=== PATIENT | female | born 1970 | race Caucasian/White ===

== ENCOUNTER 2021-10-21 15:48 | Emergency (ER) | payer BC, SELFPAY ==
[2021-10-21 15:48] VITALS: BP 154/100; PULSE 84; RESP 18; TEMP 35.8; O2SAT 100; BMI 37.3
--- NOTE | 2021-10-21 15:50 | EKG12_ITS ---
Test Reason : CP Blood Pressure : / mmHG Vent. Rate : 078 BPM Atrial Rate : 078 BPM P-R Int : 176 ms QRS Dur : 094 ms QT Int : 380 ms P-R-T Axes : 049 -17 010 degrees QTc Int : 433 ms Normal sinus rhythm Low voltage QRS (Precordial Leads) Confirmed by JOSE ALBERTO GONG, ARIELA ([id number]), proposal editor ANDRE SHAW ([id number]) on 10/23/2021 12:17:20 PM Referred By: YASMIN Confirmed By:ARIELA ABRAMS MD
--- NOTE | 2021-10-21 16:07 | NURSING ---
NO OLD EKGS
[2021-10-21 16:12] LABS: Absolute Lymphocyte Count 2.76 X10^3/uL (0.83-4.51); Absolute Neutrophil Count 4.9 X10^3/uL (2.0-7.7); Basophil# 0.09 X10^3/uL; Eosinophil# 0.27 X10^3/uL; Eosinophils% 3.1 % (0-5); Hemoglobin 12.1 g/dL (12.0-15.0); Lymphocyte # 2.76 X10^3/ul (0.83-4.51); Lymphocyte % 31.4 % (19-41); Mean Corp Hgb Conc 32.7 g/dL (32-36); Mean Corpuscular Hgb 28.2 pg (27.0-32.0); Mean Corpuscular Volume 86.2 fL (81-99); Mean Platelet Vol. 8.7 fl (6.2-12.0); Monocyte# 0.64 X10^3/uL; Monocyte% 7.3 % (0-10); NRBC Flagged by Analyzer 0.6 % (0-5); Neutrophil # 4.91 X10^3/uL (2.7-7.7); Neutrophil % 55.8 % (47-70); Platelet Count 298 K/mm3 (150-450); RBC Distribution Width CV 14.3 % (11.6-14.6); RBC Distribution Width SD 44.3 fl (35.1-43.9); Red Blood Count 4.29 M/mm3 (4.2-5.4); White Blood Count 8.8 K/mm3 (4.4-11.0)
--- NOTE | 2021-10-21 16:40 | RAD_ITS ---
INDICATION: chest pain EXAMINATION/TECHNIQUE: X-RAY - XR Chest 1 View COMPARISON: None. FINDINGS: LIFE-SUPPORT AND LINES: 1. None HEART AND VESSELS: The cardiac silhouette, pulmonary vasculature have normal appearance. No evidence of congestive failure. LUNGS AND PLEURAL SPACES: Subtle asymmetric interstitial infiltrate versus atelectasis at the RIGHT lung base without consolidation or effusion. Remaining lung zones are clear. No pulmonary mass is noted. MEDIASTINUM AND HILAR REGIONS: No masses adenopathy noted. No areas of calcification. Visualized upper airway is normal in position. BONY ELEMENTS: No acute bony changes noted. RAD/Chest 1 View (Portable) IMPRESSION: 1. Subtle asymmetric interstitial infiltrate versus atelectasis at the RIGHT lung base. No evidence of congestive failure, consolidation or effusion. Electronically Signed: Sundeep Fritz MD at 16:52 EST Tel , Service support ,
[2021-10-21 16:41] LABS: Anion Gap 7 (5-15); BUN 16 mg/dL (7-18); BUN/Creat Ratio 22.3 RATIO (10-20); Calcium,Total 9.1 mg/dL (8.5-10.1); Chloride 107 mmol/L (98-107); Creatinine, Serum 0.72 mg/dL (0.55-1.02); EST Glomerular Filtration Rate 92 mL/min (>60); Est Glom Filt Rate - Afr Amer 111 mL/min (>60); Estimated Creatinine Clearance 102.21 ml/min; Glucose 103 mg/dL (74-106); Potassium 3.8 mmol/L (3.5-5.1); Sodium Level 141 mmol/L (136-145); Troponin-I HS < 3 pg/mL (3.0-54.0)
[2021-10-21 19:08] VITALS: BP 146/83; PULSE 75; RESP 12; O2SAT 97
--- NOTE | 2021-10-21 19:23 | EDS_ITS ---
HPI History of Present Illness Chief Complaint: Chest Pain Informant: patient Onset/Context/Timing Onset: Today Activity at onset: gradual Timing: Waxes and wanes Quality: Positive for Pressure Location: Substernal Current Severity: Mild Maximum Severity: Moderate Narrative Narrative: Patient presents secondary to chest pain that started while she was at work today. Around 230 this afternoon she noted a pressure sensation in her chest that kept increasing. She had 3 separate ways of rather intense pain. She did have some pain that radiated up to her jaw. She had mild sweats but did not feel short of breath. She states her pain completely subsided this afternoon and is now only very mild. She denies cardiac history. No change in activity tolerance over the last couple weeks. [facility] Medical History Multiple sclerosis Home Medications Vitamin D (with calcium) 10/21/21 [History Last Taken Unknown] sertraline 75 mg PO DAILY 10/21/21 [History Last Taken Unknown] sertraline 75 mg PO DAILY 10/21/21 [History Last Taken Unknown] Allergy/AdvReac Type Severity Reaction Status Date / Time Penicillins Allergy Hives Verified 10/21/21 15:50 Social History Smoking Status: Current some day smoker tobacco type: cigarettes ROS ROS ED Constitutional Constitutional ED: Denies chills or fever(s) Eyes Eyes: Denies change in vision ENT ENT ED: Denies sore throat Cardiovascular Cardiovascular: Reports chest pain Respiratory/Chest Respiratory/Chest: Denies cough or dyspnea Gastrointestinal Gastrointestinal: Denies abdominal pain, diarrhea, nausea or vomiting Genitourinary Genitourinary ED: Denies dysuria Musculoskeletal Musculoskeletal: Denies back pain Integumentary Denies rash Neurologic Neurologic: Denies headache(s) Psychiatric Psychiatric: Denies anxiety or depression Allergic/Immunologic Allergic/Immunologic ED: Denies urticaria EXAM Physical Exam Const Vital Signs: 10/21/21 15:48 10/21/21 19:08 10/21/21 19:12 Temperature 96.5 F L Temperature Source Temporal Pulse Rate 84 75 Respiratory Rate 18 12 Respiratory Effort Normal Blood Pressure 154/100 H 146/83 H Blood Pressure Mean 118 104 Pulse Ox 100 97 Oxygen Delivery Method Room Air Room Air 10/21/21 20:08 Temperature Temperature Source Pulse Rate 77 Respiratory Rate 17 Respiratory Effort Blood Pressure 119/80 Blood Pressure Mean 93 Pulse Ox 96 Oxygen Delivery Method Room Air Positive well nourished and well developed General Appearance ED: well developed HEENT Reports normocephalic and head/scalp atraumatic Eyes PERRL and EOMs intact bilaterally Neck supple Chest Wall inspection of chest normal and palpation of chest normal Resp normal respiratory effort and clear to auscultation bilaterally Cardio regular rate and regular rhythm GI normal to inspection, nondistended, normoactive bowel sounds, soft to palpation and non-tender Palpation: soft Extremity normal to inspection Neuro oriented x3 Neuro Narrative: No focal neurologic deficits. Sensorium / Orientation: alert Psych mental status grossly normal Skin no rashes or lesions noted Heart Score History: Moderately Suspicious ECG: Normal Age: >45 - <65 years Risk Factors: No Risk Factors Troponin: </= Normal Limit Score: 2 MDM MDM MDM Narrative Medical decision making narrative: EKG, chest x-ray, lab work obtained. Lab Data Attestation: I reviewed the patient's lab results. Labs: Laboratory Results - last 24 hr 10/21/21 10/21/21 10/21/21 16:00 16:00 19:49 WBC 8.8 RBC 4.29 Hgb 12.1 Hct 37.0 MCV 86.2 MCH 28.2 MCHC 32.7 RDW Std Deviation 44.3 H RDW Coeff of Giana 14.3 Plt Count 298 MPV 8.7 Immature Gran % (Auto) 1.400 H Neut % (Auto) 55.8 Lymph % (Auto) 31.4 [place] % (Auto) 7.3 Eos % (Auto) 3.1 Baso % (Auto) 1.0 Absolute Neuts (auto) 4.9 Absolute Lymphs (auto) 2.76 Nucleated RBC % 0.6 Sodium 141 Potassium 3.8 Chloride 107 Carbon Dioxide 27.0 Anion Gap 7 BUN 16 Creatinine 0.72 Estim Creat Clear Calc 102.21 Est GFR (MDRD) Af Amer 111 Est GFR (MDRD) Non-Af 92 BUN/Creatinine Ratio 22.3 H Glucose 103 Calcium 9.1 Troponin I High Sens < 3 L < 3 L Radiography Chest X-Ray - ED: 1 View, Read by ED Physician and Chronic Changes Diagnostic Testing: Clinical Impression(s) from Imaging Studies Chest X-Ray 10/21/21 16:40 IMPRESSION: 1. Subtle asymmetric interstitial infiltrate versus atelectasis at the RIGHT lung base. No evidence of congestive failure, consolidation or effusion. Electronically Signed: Sundeep Fritz MD at 16:52 EST Tel , Service support , EKG Initial EKG: Attestation: I personally reviewed and interpreted this EKG as follows: Interpretation: Sinus Rhythm (Sinus at 78 with no acute ischemia.) Treatment and Re-Evaluation Comments:: Initial labs reviewed with the patient. Troponin is less than 3. Chest x-ray unremarkable. EKG reveals no ischemia. Delta troponin obtained and again returns at less than 3. Patient reassured with these findings and will follow with her primary care physician. Return instructions given. Discharge Plan Triage Chief Complaint: Chest Pain ED Provider: Ita Ji Dx/Rx/DC Orders Clinical Impression: Chest pain Instructions: ED Chest Pain, Uncertain Cause Prescriptions: No Action sertraline 100 mg tablet 75 mg PO DAILY RF: 0 sertraline 25 mg tablet 75 mg PO DAILY RF: 0 Vitamin D (with calcium) RF: 0 Primary Care Provider: Jessee Conley Referrals: Jessee Conley, [Primary Care Provider] - 3-5 Days if not improving Disposition Disposition: Home, Self Care
[2021-10-21 20:08] VITALS: BP 119/80; PULSE 77; RESP 17; O2SAT 96
[2021-10-21 20:20] LABS: Troponin-I HS < 3 pg/mL (3.0-54.0)
[2021-10-21 20:31] VITALS: BP 127/79; PULSE 81; RESP 6; O2SAT 96
== END 2021-10-21 20:37 | disposition home or self-care (01) ==
PROVIDERS: Emergency Provider Emergency Medicine; PCP Student in an Organized Health Care Education/Training Program
DX: R07.89 Other chest pain (principal); R61 Generalized hyperhidrosis; G35 Multiple sclerosis; Z79.899 Other long term (current) drug therapy; F17.210 Nicotine dependence, cigarettes, uncomplicated
CPT/HCPCS: 71045; 80048; 84484; 85025; 93005; 99284; A4216

== ENCOUNTER 2023-07-19 20:34 | Emergency (ER) | payer OTHER, SELFPAY ==
[2023-07-19 20:35] VITALS: BP 144/103; PULSE 82; RESP 16; RESP 18; TEMP 35.6; O2SAT 99; BMI 38.2
--- NOTE | 2023-07-19 20:51 | EKG12_ITS ---
Test Reason : DYSRHYTHMIA Blood Pressure : / mmHG Vent. Rate : 071 BPM Atrial Rate : 071 BPM P-R Int : 182 ms QRS Dur : 092 ms QT Int : 408 ms P-R-T Axes : 044 -18 -04 degrees QTc Int : 443 ms Normal sinus rhythm Minimal voltage criteria for LVH, may be normal variant ( R in aVL ) Cannot rule out Anterior infarct , age undetermined Abnormal ECG Confirmed by JODI GONG, TAVIA ([id number]), business editor SMILEY QUAN ([id number]) on 07/23/2023 11:35:08 AM Referred By: Confirmed By:TAVIA ZAPATA MD
--- NOTE | 2023-07-19 20:56 | EX.ED.DYSGE1 ---
HPI History of Present Illness Chief Complaint: Dizziness Informant: patient Onset/Context/Timing Onset: Today Narrative Narrative: Patient presents secondary to dizziness with nausea, vomiting, and frequent bowel movements. Patient states she was outside playing football with her son and her . She stubbed her left index finger. About 10 minutes later she started feeling lightheaded and dizzy along with some nausea. She felt as if she needed to have a bowel movement. She went into the house but had to hold onto the carroll. She had a bowel movement and lay down in bed and felt somewhat better. She states symptoms then recurred where she went back to the bathroom. She had another bowel movement and vomited and felt as if she was going to pass out. [facility] Medical History Multiple sclerosis Home Medications Vitamin D (with calcium) 10/21/21 [History Last Taken Unknown] sertraline 100 mg tablet 75 mg PO DAILY 10/21/21 [History Last Taken Unknown] sertraline 25 mg tablet 75 mg PO DAILY 10/21/21 [History Last Taken Unknown] Allergy/AdvReac Type Severity Reaction Status Date / Time Penicillins Allergy Hives Verified 10/21/21 15:50 Social History Smoking Status: Current some day smoker tobacco type: cigarettes ROS ROS ED Constitutional Constitutional ED: Denies chills or fever(s) Eyes Eyes: Denies change in vision ENT ENT ED: Denies rhinorrhea or sore throat Cardiovascular Cardiovascular: Denies chest pain or palpitations Respiratory/Chest Respiratory/Chest: Denies cough or dyspnea Gastrointestinal Gastrointestinal: Reports diarrhea, nausea and vomiting; Denies abdominal pain Genitourinary Genitourinary ED: Denies difficulty urinating or dysuria Musculoskeletal Musculoskeletal: Reports extremity pain; Denies back pain Integumentary Denies Abrasions or rash Neurologic Neurologic: Denies headache(s) or weakness Psychiatric Psychiatric: Denies anxiety or depression Allergic/Immunologic Allergic/Immunologic ED: Denies lip swelling or urticaria EXAM Physical Exam Const Vital Signs: 07/19/23 20:35 07/19/23 20:35 Temperature 96.0 F L 96.0 F L Temperature Source Temporal Temporal Pulse Rate 82 82 Respiratory Rate 18 16 Blood Pressure 144/103 H 144/103 H Blood Pressure Mean 116 116 Pulse Ox 99 99 Oxygen Delivery Method Room Air Room Air Positive well nourished and well developed General Appearance ED: well developed HEENT Reports moist mucous membranes Eyes EOMs intact bilaterally Neck no lymphadenopathy Chest Wall inspection of chest normal and palpation of chest normal Resp normal respiratory effort and clear to auscultation bilaterally Cardio regular rate and regular rhythm GI non-tender Auscultation: normoactive bowel sounds Palpation: soft Extremity Extremity Narrative: Minimal tenderness noted to the left index finger. Mild edema. Full range of motion with no difficulty. Good cap refill and sensation. Neuro oriented x3 and no sensory deficits noted Motor Exam: strength 5/5 throughout Skin no rashes or lesions noted MDM MDM MDM Narrative Medical decision making narrative: Patient's history sounds as if she had a vasovagal reaction, however was more prolonged than normal lasting about 45 minutes. In light of this with her history of MS patient will be placed on hospital monitor. EKG obtained to evaluate for cardiac arrhythmia/ischemia. Labwork obtained to evaluate for leukocytosis, anemia, and electrolyte derangement. Patient given IV fluids. History & Record Review Discussion w/independent historian: Patient and Significant other Lab Data Attestation: I reviewed the patient's lab results. Labs: Laboratory Results - last 24 hr 07/19/23 21:12 WBC 12.2 H RBC 4.62 Hgb 13.3 Hct 40.6 MCV 87.9 MCH 28.8 MCHC 32.8 RDW Std Deviation 43.5 RDW Coeff of Giana 13.4 Plt Count 378 MPV 8.9 Immature Gran % (Auto) 0.500 Neut % (Auto) 78.0 H Lymph % (Auto) 13.5 L [place] % (Auto) 5.6 Eos % (Auto) 1.7 Baso % (Auto) 0.7 Absolute Neuts (auto) 9.5 H Absolute Lymphs (auto) 1.65 Nucleated RBC % 0 Sodium 138 Potassium 3.6 Chloride 108 H Carbon Dioxide 25.0 Anion Gap 5 BUN 13 Creatinine 0.83 Estim Creat Clear Calc 87.69 Est GFR (MDRD) Af Amer 93 Est GFR (MDRD) Non-Af 77 BUN/Creatinine Ratio 15.6 Glucose 104 Calcium 8.6 EKG Initial EKG: Attestation: I personally reviewed and interpreted this EKG as follows: Interpretation: Sinus Rhythm (Sinus rhythm at 71 bpm. No acute ischemia.) Treatment and Re-Evaluation :: CBC was a white count 12.2 with 70% neutrophils. That this is likely a stress response from vomiting. Chemistry studies are unremarkable. Glucose is normal at 104. EKG is sinus with no acute ischemia. After IV fluids patient feels improved. I do not feel she needs imaging of her finger as she has full range of motion with very minimal tenderness. Her symptoms are consistent with vasovagal reaction, both from the injury as well as from the diarrhea that she had. Her episode was just more prolonged than typically expected. Return instructions were given. Patient and her are comfortable with the plan. Discharge Plan Triage Chief Complaint: Dizziness ED Provider: Ita Ji Dx/Rx/DC Orders Clinical Impression: Contusion of finger, Vaso-vagal reaction Instructions: ED Finger Contusion, ED Near-Fainting- Vagal Reaction Prescriptions: No Action sertraline 100 mg tablet 75 mg PO DAILY Patient Comments: take 1/2 tablet by mouth once daily sertraline 25 mg tablet 75 mg PO DAILY Patient Comments: take 1 tablet by mouth once daily (IN ADDITION TO 50MG TAB) Vitamin D (with calcium) Primary Care Provider: Jessee Conley Referrals: Jessee Conley DO [Primary Care Provider] - As Needed Disposition Disposition: Home, Self Care
[2023-07-19] MEDS: 0.9% Normal Saline 1,000 ML 1000 ML IV (21:13)
[2023-07-19 21:22] LABS: Absolute Lymphocyte Count 1.65 X10^3/uL (0.83-4.51); Absolute Neutrophil Count 9.5 X10^3/uL (2.0-7.7); Basophil# 0.08 X10^3/uL; Basophil% 0.7 % (0-1); Eosinophil# 0.21 X10^3/uL; Eosinophils% 1.7 % (0-5); Hematocrit 40.6 % (37-47); Hemoglobin 13.3 g/dL (12.0-15.0); Lymphocyte # 1.65 X10^3/ul (0.83-4.51); Lymphocyte % 13.5 % (19-41); Mean Corp Hgb Conc 32.8 g/dL (32-36); Mean Corpuscular Hgb 28.8 pg (27.0-32.0); Mean Corpuscular Volume 87.9 fL (81-99); Mean Platelet Vol. 8.9 fl (6.2-12.0); Monocyte# 0.68 X10^3/uL; Monocyte% 5.6 % (0-10); NRBC Flagged by Analyzer 0 % (0-5); Neutrophil # 9.54 X10^3/uL (2.7-7.7); Platelet Count 378 K/mm3 (150-450); RBC Distribution Width CV 13.4 % (11.6-14.6); RBC Distribution Width SD 43.5 fl (35.1-43.9); Red Blood Count 4.62 M/mm3 (4.2-5.4); White Blood Count 12.2 K/mm3 (4.4-11.0)
[2023-07-19 21:42] LABS: Anion Gap 5 (5-15); BUN 13 mg/dL (7-18); BUN/Creat Ratio 15.6 RATIO (10-20); Calcium,Total 8.6 mg/dL (8.5-10.1); Chloride 108 mmol/L (98-107); Creatinine, Serum 0.83 mg/dL (0.55-1.02); EST Glomerular Filtration Rate 77 mL/min (>60); Est Glom Filt Rate - Afr Amer 93 mL/min (>60); Estimated Creatinine Clearance 87.69 ml/min; Glucose 104 mg/dL (74-106); Potassium 3.6 mmol/L (3.5-5.1); Sodium Level 138 mmol/L (136-145)
== END 2023-07-19 22:05 | disposition home or self-care (01) ==
PROVIDERS: Emergency Provider Emergency Medicine; PCP Student in an Organized Health Care Education/Training Program; Visit Provider Emergency Medicine
DX: R55 Syncope and collapse (principal); F17.210 Nicotine dependence, cigarettes, uncomplicated; S60.022A Contusion of left index finger without damage to nail, initial encounter; X58.XXXA Exposure to other specified factors, initial encounter; Y93.61 Activity, american tackle football; Y92.89 Other specified places as the place of occurrence of the external cause
CPT/HCPCS: 80048; 85025; 93005; 96360; 99283; J7030; A4216